=== PATIENT | female | born 1990 | race Caucasian/White ===

== ENCOUNTER 2017-12-01 06:34 | Day surgery (SDC) | payer SELFPAY ==
[~2017-12-01 06:34] MED LIST: Buffered Lidocaine 0.9% SYRIN* 5 ML/SYR SYRINGE INTRADERM ONE
[2017-12-01] MEDS ORDERED: ceFAZolin 2 GM PREMIX (*) 2 GM/50 ML BAG IVPB ONE (06:45)
[2017-12-01] MEDS ORDERED: fentaNYL* 50 MCG/ML 2 ML VIAL (100 MCG VIAL) ONE ×2 (07:17→08:27)
[2017-12-01] MEDS ORDERED: Midazolam* 1 MG/ML 2 ML VIAL (2 MG) ONE (07:17)
[2017-12-01] MEDS ORDERED: Lidocaine 2% PF* 10 ML AMP ONE (07:20)
[2017-12-01] MEDS ORDERED: Lidocaine 2% PF * 5 ML VIAL ONE ×3 (07:20→07:36)
[2017-12-01] MEDS ORDERED: Sodium Bicarbonate 8.4% SYR* 10 ML SYRINGE ONE (07:20)
[2017-12-01] MEDS ORDERED: EPINEPHRINE 1 MG/ML 1 ML VIAL ONE ×2 (07:21→07:34)
[2017-12-01] MEDS ORDERED: Bupivacaine 0.5%* 50 ML VIAL ONE (07:22)
[2017-12-01] MEDS ORDERED: Famotidine IV* 10 MG/ML 2 ML (20 mg) ONE (07:26)
[2017-12-01] MEDS ORDERED: Lidocaine 1% MPF wEPI 200,000* 30 ML SDV ONE (07:34)
[2017-12-01] MEDS ORDERED: Propofol* 10 MG/ML 20 ML BTL IV PUSH ONE (07:36)
[2017-12-01] MEDS ORDERED: Dexamethasone IV* 4 MG/ML 1 ML (4 MG) ONE (07:36)
[2017-12-01] MEDS ORDERED: Ondansetron INJ* 2 MG/ML VIAL ONE (07:36)
[2017-12-01] MEDS ORDERED: Nalbuphine* 10 MG/ML 1 ML VIAL IV PRN (08:17)
[2017-12-01] MEDS ORDERED: Acetaminophen TAB* 325 MG PO PRN (08:17)
[2017-12-01] MEDS ORDERED: fentaNYL* 50 MCG/ML 2 ML VIAL (100 MCG VIAL) IV PRN (08:17)
[2017-12-01] MEDS ORDERED: Levalbuterol 0.63MG/3ML NEB* UNIT OF USE INH PRN (08:17)
[2017-12-01] MEDS ORDERED: Scopolamine 1.5 mg* PATCH TRANSDERM PRN (08:17)
[2017-12-01] MEDS ORDERED: Naloxone* 0.4 MG/ML 1 ML VIAL IV PRN (08:17)
[2017-12-01] MEDS ORDERED: DiMENhydriNATE IV* 50 MG/ML VIAL IV PUSH PRN (08:17)
[2017-12-01] MEDS ORDERED: HYDROcodone/ACETAMIN 5-325 MG* 1 TAB PO PRN ×2 (08:17)
[2017-12-01] MEDS ORDERED: PROCHLORPERAZINE INJ 5 MG/ML 2 ML VIAL IV PRN (08:17)
[2017-12-01] MEDS ORDERED: Acetaminophen TAB* 325 MG ONE (09:29)
[2017-12-01 09:54] VITALS: BP 124/73
[2017-12-04] MEDS ORDERED: Scopolamine PATCH Remove* 1 NOTE MISC PATCH OFF ONE (08:18)
== END 2017-12-01 09:56 | disposition home or self-care (01) ==
LOC: OREAST 06:34
PROVIDERS: ATTEND Plastic Surgery
DX: Z41.1 Encounter for cosmetic surgery (principal); Z72.0 Tobacco use; F41.8 Other specified anxiety disorders
CPT/HCPCS: 81025; A9270-GY; J0690; J1100; J2001; J2250; J2405; J2704; J3010

== ENCOUNTER 2019-03-07 08:18 | Inpatient (IN) | payer OTHER ==
[2019-03-07] MEDS ORDERED: Misoprostol TAB* 100 MCG PO ONE (08:50)
[2019-03-07 12:30] LABS: Urine Benzodiazepine Screen None Detected (None Detect); Urine Opiates Screen None Detected (None Detect)
--- NOTE | 2019-03-07 12:52 | HP ---
General Information - Reason for Visit Pt presents for IOL at 39weeks EGA - General Information Maternal Age: 28 Grav: 3 Para: 2 SAB: 0 IEA: 0 Estimated Due Date: 03/14/19 Determined By: LMP Gestational Age in Weeks/Days: 39 Maternal Blood Type and Rh: O Positive - Results this Serology/RPR Result: Non-Reactive Rubella Result: Immune HBsAg Result: Negative HIV Result: Negative GBS Culture Result: Negative Past Medical History Delivery History: Hx Uncomplicated Vaginal Delivery Pertinent Past Medical History: See Records - history of depression Pertinent Past Surgical History: See Records - liposuction 2018 Pertinent Family History: See Records - M: blood clots(HRT, tobacco use); MGM: blood clots (post op) - Antepartal Records Antepartal Records: Reviewed, Complicated by: - macrosomia, EFW: 98% 4075g Review of Systems Constitutional: Comfortable CV Complaint: No Respiratory: Shortness of Breath: No Gastrointestinal: No Nausea/Vomiting, Normal Bowel Movement Genitourinary: No Dysuria, No Bleeding, No Leaking Fluid Musculoskeletal: No Complaint, No Epigastric Pain, Back Pain Neurological: No Headache, No Visual Changes Movement: Normal Exam Allergies/Adverse Reactions: Allergies No Known Allergies Allergy (Verified 03/07/19 09:41) T:97.3, P:102, R:18, BP:110/73, O2:99% Lab Values - Entire Visit: Laboratory Tests 03/06/19 11:24 Urine Opiates Screen None detected Ur Barbiturates Screen None detected Ur Phencyclidine Scrn None detected Ur Amphetamines Screen None detected U Benzodiazepines Scrn None detected Urine Cocaine Screen None detected U Cannabinoids Screen None detected - Measurements Height: 5 ft 9 in Weight: 230 lb Weight in lbs: [phone] Body Mass Index (BMI): 34.0 Pre- Weight: 195 lb Weight Gained This : 35 lbs and 0 ozs - Exam Breast: Breast Exam Deferred CVA: No CVA Tenderness Extremities: No Edema Heart: Normal Rhythm/Heart Sounds HEENT: No Significant Findings Lungs: Clear Bilaterally Rectal: Rectal Exam Deferred Reflexes: DTR 2+ Thyroid: No Thyromegaly - Abdominal Exam Abdomen Exam: Non-Tender - Ultrasound/Biophysical Profile Ultrasound Status: Not Done Targeted Exam Findings Estimated Weight: [id number] Cervical Exam: 3cm Effacement: 80% Station: -2 Presenting Part: Vertex Membrane Status: Bulging Bleeding/Discharge: None EFM Findings - External Monitor Findings External Monitor Findings: Accelerations Present, No Pattern of Variable or Late Decelerations, Variability Moderate, Baseline Stable Contractions: Irregular, Mild, < 45 Seconds Assessment/Plan - Assessment 28 y.o. , 39wks EGA, macrosomia, IOL - Plan Plan: Admit - Anticipate Vaginal Delivery - Date/Time of Admission Date of Admission: 03/07/19 Time of Admission: 13:00
[2019-03-07] MEDS ORDERED: Famotidine TAB* 20 MG PO PRN (14:44)
[2019-03-07] MEDS ORDERED: Sodium Citrate/Citric Acid* 15 ML UDC PO PRN (14:44)
[2019-03-07] MEDS ORDERED: Phenylephrine 40 MCG/ML SYRINGE IV PUSH PRN ×2 (14:44)
[2019-03-07] MEDS ORDERED: Lactated Ringers 1000 ML Bag* 1,000 ML IV ONE (14:44)
[2019-03-07] MEDS ORDERED: OBEPIDURAL* 250 ML EPIDURAL ONE (14:50)
[2019-03-07 14:51] LABS: Hematocrit 35 % (35-47); Hemoglobin 11.7 g/dL (12.0-16.0); Mean Corpuscular HGB Conc 34 g/dL (31-36); Mean Corpuscular Hemoglobin 29 pg (27-31); Mean Corpuscular Volume 85 fL (80-97); Mean Platelet Volume 11.5 fL (7.4-10.4); Platelet Count 136 10^3/uL (150-450); Red Blood Count 4.07 10^6 /uL (3.70-4.87); Red Cell Distribution Width 14 % (10-15)
[2019-03-07] MEDS ORDERED: Bupivacaine 0.25% SDV PF* 10 ML VIAL INJ ONE (14:51)
[2019-03-07] MEDS ORDERED: Lactated Ringers 1000 ML Bag* 1,000 ML IV SCH ×2 (15:00→19:00)
[2019-03-07] MEDS ORDERED: OBEPIDURAL* 250 ML EPIDURAL SCH (15:00)
[2019-03-07] MEDS: Lactated Ringers 1000 ML Bag* 1,000 ML IV SCH ×2 (15:14→16:47)
[2019-03-07 15:20] LABS: ABS Eosinophils 0.1 10^3/ul (0-0.6); ABS Lymphocytes 1.6 10^3/ul (1.0-4.8); ABS Monocytes 0.4 10^3/ul (0-0.8); ABS Neutrophils 5.9 10^3/ul (1.5-7.7); Eosinophil % 0.7 %; Lymphocyte % 20.4 %; Nucleated Red Blood Cells % 0.1
--- NOTE | 2019-03-07 18:09 | PN ---
Progress Note - Progress Note Date of Service: 03/07/19 - 13:50 SOAP: Subjective: Pt report mild irritability and irregular ctx. Objective: 145 bpm, ctx q 1.2-2min, mild to palpation cervix: 3.5cm AROM- clear Assessment: 28 y.o. , 39 weeks EGA, suspected macrosomia, early labor Plan: 1) AROM-clear 2) Ambulation, reevaluate in 3 hrs
--- NOTE | 2019-03-07 18:11 | PN ---
Progress Note - Progress Note Date of Service: 03/07/19 - 14:35 SOAP: Subjective: Pt reports ctx are increasing in intensity and frequency since AROM and pt requests epidural. Objective: FHR: 145bpm cervix: 4-5cm/80/-1 Assessment: 28 y.o. 39wks EGA, suspected macrosomia, active labor Plan: 1) Anesthesia consult for epidural 2) POsition changes for descent reevaluate in 2 hrs or sooner PRN
--- NOTE | 2019-03-07 18:14 | PN ---
Progress Note - Progress Note Date of Service: 03/07/19 - 18:04 SOAP: Subjective: Pt reports increasing vaginal and rectal pressure and ctx 1-2 minutes apart. Objective: FHR: 135 bpm, + accels, early decels and occasional variables. BP:130/90, P:77, cervix:8cm/90%/0station Assessment: 28 y.o. suspected macrosomia, transition, cat I NST Plan: 1) Anticipate vaginal delivery 2) Dr. Medrano aware of pt's progress and that we will be pushing soon.
[2019-03-07] MEDS ORDERED: Dibucaine 1% 28.35 GM TUBE PR PRN (18:50)
[2019-03-07] MEDS ORDERED: Glycerin ADULT SUPP PR PRN (18:50)
[2019-03-07] MEDS ORDERED: Witch Hazel PAD* JAR TOPICAL PRN (18:50)
--- NOTE | 2019-03-07 18:50 | PROCNOTE ---
[facility] OB: Delivery Note - Delivery A Date of : 03/07/19 Time of : 18:35 Sex: Male Score 1 Minute: 9 Score 5 Minutes: 10 Gestational Age in Weeks and Days at Delivery: 39 Weeks and 0 Days Delivery Method: Spontaneous Vaginal Labor: Induced Amniotic Fluid: Clear Estimated Blood Loss: 250 Anesthesia/Analgesia: CEI for Labor Delivered By: Pauline Briggs - Nursery Level of Nursery: Regular/Bedside - Perineum Perineal Injury: None/Intact Perineal Injury Comment: left labial abbration Perineal Repair: By Delivering Practioner
[2019-03-07] MEDS: Ibuprofen TAB* 600 MG PO PRN (19:51)
[2019-03-07] MEDS ORDERED: Simethicone TAB* 80 MG TAB.CHEW PO SCH (21:00)
[2019-03-08] MEDS: Acetaminophen TAB* 325 MG PO PRN ×4 (00:02→21:23)
[2019-03-08] MEDS: Ibuprofen TAB* 600 MG PO PRN ×3 (03:20→19:29)
[2019-03-08 06:23] LABS: Hematocrit 32 % (35-47); Hemoglobin 10.8 g/dL (12.0-16.0); Mean Corpuscular HGB Conc 34 g/dL (31-36); Mean Corpuscular Hemoglobin 30 pg (27-31); Mean Corpuscular Volume 86 fL (80-97); Mean Platelet Volume 11.5 fL (7.4-10.4); Platelet Count 111 10^3/uL (150-450); Red Blood Count 3.67 10^6 /uL (3.70-4.87); Red Cell Distribution Width 14 % (10-15); White Blood Count 10.6 10^3/uL (3.5-10.8)
[2019-03-08 07:00] LABS: ABS Eosinophils 0.1 10^3/ul (0-0.6); ABS Monocytes 0.5 10^3/ul (0-0.8); Eosinophil % 0.5 %; Lymphocyte % 18.8 %
[2019-03-08 07:01] LABS: Large Platelets Present
[2019-03-08] MEDS: Docusate CAP* 100 MG PO SCH ×3 (08:27→19:29)
[2019-03-08] MEDS ORDERED: Ferrous Gluconate TAB* 324 MG TAB PO SCH (09:00)
[2019-03-09] MEDS: Ibuprofen TAB* 600 MG PO PRN (05:16)
[2019-03-09] MEDS: Acetaminophen TAB* 325 MG PO PRN ×2 (05:19→09:07)
[2019-03-09] MEDS: Docusate CAP* 100 MG PO SCH (09:07)
[2019-03-09 09:32] VITALS: BP 131/82
== END 2019-03-09 13:13 | disposition home or self-care (01) | DRG 560 ==
LOC: MCHOBOUT 08:18 → MCHOB 12:50
PROVIDERS: ADMIT Midwife; ATTEND Midwife
PROC: 10E0XZZ Delivery of Products of Conception, External Approach (ICD-10-PCS; principal; 2019-03-07)
PROC: 3E033VJ Introduction of Other Hormone into Peripheral Vein, Percutaneous Approach (ICD-10-PCS; 2019-03-07)
PROC: 10907ZC Drainage of Amniotic Fluid, Therapeutic from Products of Conception, Via Natural or Artificial Opening (ICD-10-PCS; 2019-03-07)
PROC: 0HQ9XZZ Repair Perineum Skin, External Approach (ICD-10-PCS; 2019-03-07)
DX: O36.63X0 Maternal care for excessive fetal growth, third trimester, not applicable or unspecified (principal); Z37.0 Single live birth; O99.344 Other mental disorders complicating childbirth; F32.9 Major depressive disorder, single episode, unspecified; O70.0 First degree perineal laceration during delivery; Z3A.39 39 weeks gestation of pregnancy
CPT/HCPCS: 36415; 80307; 85025; 86850; 86900; 86901; A9270-GY; J3490; S0191